=== PATIENT | female | born 1940 ===

== ENCOUNTER 2021-04-12 11:51 | Observation (INO) ==
[~2021-04-12 11:51] MED LIST: Buffered Lidocaine 1% SYRIN 1 ml INTRADERM ONE; Famotidine IV 10 MG/ML 2 ml VIAL (20 mg) IV ONE; Lactated Ringers 1000 ml BAG 1,000 ML IV SCH
[2021-04-12] MEDS ORDERED: Famotidine IV 10 MG/ML 2 ml VIAL (20 mg) ONE (12:25)
[2021-04-12] MEDS ORDERED: ceFAZolin 2 GM in NS PREMIX 2 GM/100 ML BAG IVPB ONE (12:25)
[2021-04-12] MEDS ORDERED: fentaNYL 100 mcg/2 ml 50 MCG/ML VIAL ONE ×2 (12:27→13:52)
[2021-04-12] MEDS ORDERED: Midazolam 2 mg/2 ml VIAL 1 mg/ml 2 ml VIAL (2 mg) ONE ×2 (12:27→13:52)
[2021-04-12] MEDS ORDERED: Phenylephrine IV 10 MG/ML 1 ml VIAL ONE (12:29)
[2021-04-12] MEDS ORDERED: Lidocaine 2% PF 5 ML VIAL ONE (12:29)
[2021-04-12] MEDS ORDERED: Ondansetron 4 mg VIAL 2 MG/ML 2 ml VIAL ONE (12:30)
[2021-04-12] MEDS ORDERED: Dexamethasone IV 4 MG/ML VIAL 1 ml VIAL ONE (12:30)
[2021-04-12] MEDS ORDERED: ROPIVACAINE 5 MG/ML 30 ML BTL (0.5%) ONE ×2 (13:48→13:52)
[2021-04-12] MEDS ORDERED: Ropivacaine 5 MG/ML 20 ML VIAL 0.5% (100 MG) ONE (14:11)
[2021-04-12] MEDS ORDERED: Rocuronium 50 mg VIAL 10 mg/ml 5 ml VIAL (50 mg) ONE (14:21)
[2021-04-12] MEDS ORDERED: HYDROmorphone 1 MG/1 ML SYRINGE ONE ×3 (15:10→18:11)
[2021-04-12] MEDS ORDERED: fentaNYL 250 mcg/5 ml 50 MCG/ML 5 ml VIAL (250 MCG) ONE (15:30)
[2021-04-12] MEDS ORDERED: diPHENhydraMINE 25 mg TAB PO PRN (15:36)
[2021-04-12] MEDS ORDERED: Magnesium Hydroxide LIQ 30 ML UDC PO PRN (15:36)
[2021-04-12] MEDS ORDERED: Lactulose 30 ml UDC PO PRN (15:36)
[2021-04-12] MEDS ORDERED: Ondansetron ODT 4 mg TAB 4 MG TAB PO PRN (15:36)
[2021-04-12] MEDS ORDERED: diPHENhydraMINE IV 50 MG/ML 1 ml VIAL (BENADRYL) IV PRN ×2 (15:36→18:07)
[2021-04-12] MEDS ORDERED: Ondansetron 4 mg VIAL 2 MG/ML 2 ml VIAL IV PRN ×2 (15:36→18:07)
[2021-04-12] MEDS ORDERED: Morphine 2 MG/ML SYRINGE IV PRN (15:36)
[2021-04-12] MEDS ORDERED: EPHEDrine (Pressors) 50 MG/ML VIAL ONE (16:16)
[2021-04-12] MEDS ORDERED: Propofol 10 MG/ML 20 ML BTL ONE (16:45)
[2021-04-12] MEDS ORDERED: Metoclopramide 5 MG/ML VIAL (10 mg) IV PRN (18:07)
[2021-04-12] MEDS ORDERED: Naloxone 0.4 mg VIAL 0.4 mg/ml 1 ml VIAL IV PRN (18:07)
[2021-04-12] MEDS ORDERED: fentaNYL 100 mcg/2 ml 50 MCG/ML VIAL IV PRN (18:07)
[2021-04-12] MEDS ORDERED: HYDROcodone/ACETAMIN 5/325 mg TAB PO PRN (18:07)
[2021-04-12] MEDS: HYDROmorphone 1 MG/1 ML SYRINGE IV PRN ×5 (18:20→19:14)
[2021-04-12] MEDS ORDERED: Labetalol IV 5 MG/ML 20 ml VIAL IV PUSH ONE (18:32)
[2021-04-12] MEDS ORDERED: Labetalol IV 5 MG/ML 20 ml VIAL ONE (18:37)
[2021-04-12] MEDS: Magnesium Hydroxide LIQ 30 ML UDC PO SCH (21:52)
[2021-04-12] MEDS: Lactated Ringers 1000 ml BAG 1,000 ML IV SCH (22:13)
[2021-04-12] MEDS: ceFAZolin 1 GM ADVAN 1 GM in NS 0.9% 50 ML 50 ML IVPB SCH (23:24)
[2021-04-13 06:26] LABS: Hematocrit 33 % (35-47); Hemoglobin 11.1 g/dL (12.0-16.0); Mean Platelet Volume 10.1 fL (7.4-10.4); Platelet Count 197 10^3/uL (150-450)
[2021-04-13] MEDS: Lactated Ringers 1000 ml BAG 1,000 ML IV SCH (06:41)
[2021-04-13] MEDS: ceFAZolin 1 GM ADVAN 1 GM in NS 0.9% 50 ML 50 ML IVPB SCH ×2 (06:41→15:33)
[2021-04-13 06:43] LABS: Calcium 9.1 mg/dL (8.6-10.3); EGFR African American 56.3 (>60); EGFR Non-African American 46.6 (>60); Potassium 4.5 mmol/L (3.5-5.0)
[2021-04-13] MEDS: Magnesium Hydroxide LIQ 30 ML UDC PO SCH (08:45)
[2021-04-13] MEDS ORDERED: Aspirin EC 81 mg TAB.EC (enteric coated) PO SCH (09:00)
[2021-04-13] MEDS ORDERED: Vitamin THERAPEUTIC TAB PO SCH (09:00)
[2021-04-13 11:18] VITALS: BP 128/75
[2021-04-13] MEDS ORDERED: Mometasone 220 MCG MDI INH SCH (21:00)
[2021-04-16] MEDS ORDERED: Scopolamine PATCH Remove NOTE PATCH OFF ONE (08:00)
== END 2021-04-13 16:00 | disposition home or self-care (01) ==
LOC: SSU 11:51 → OR 11:51
PROVIDERS: ADMIT Orthopaedic Surgery Adult Reconstructive Orthopaedic Surgery; ATTEND Orthopaedic Surgery Adult Reconstructive Orthopaedic Surgery